=== PATIENT | female | born 1995 | race Caucasian/White ===

== ENCOUNTER 2017-12-06 21:48 | Emergency (ER) | payer OTHER ==
[~2017-12-06] VITALS: Ht 162.6 cm; Wt 83.9 kg
[~2017-12-06 21:48] MED LIST: ACET325 PO; ACYC400 PO; Bactrim Ds Tab1 EACH PO; CEPH500 PO; Crutch1 EACH MISC; IBUP800 PO; Norco 5-325 Ta1 EACH PO; Zithromax250 MG PO; [UNRECOGNIZED DRUG - OTHER]
[2017-12-06] MEDS ORDERED: PSEU120ER PO (22:29)
[2017-12-06] MEDS ORDERED: ROBITUSSIN COU237 ML PO (22:29)
== END 2017-12-06 23:03 | disposition home or self-care (01) ==
LOC: ER 21:48
DX: J06.9 Acute upper respiratory infection, unspecified (principal); Z88.0 Allergy status to penicillin; Z88.2 Allergy status to sulfonamides; Z88.5 Allergy status to narcotic agent; Z88.8 Allergy status to other drugs, medicaments and biological substances; Z91.018 Allergy to other foods; Z91.010 Allergy to peanuts
CPT/HCPCS: 99282